=== PATIENT | female | born 1950 | race Caucasian/White ===

== ENCOUNTER 2017-09-25 15:27 | Observation (INO) | payer OTHER, BC ==
[~2017-09-25] VITALS: Ht 162.6 cm; Wt 80.0 kg
[~2017-09-25 15:27] MED LIST: ADVAIR 100/501 DISK IH; AMOX TR-K CLV1 EAC4 PO; ASPIR 8181 M1 PO; ATORVASTATIN CA10 MG PO; BENICAR40 MG PO; CALCIUM 500 MG1 EACH PO; CRESTOR10 MG PO; FLONASE16 G1 BOTH NARES; FLUCONAZOLE200 MG PO; MIRAPEX0.125 MG PO; NEXIUM40 MG PO; REQUIP2 MG PO; SERTRALINE HCL50 MG PO; ULTRAM50 MG PO; VITAMIN E100 UNIT PO; VOLTAREN50 MG PO; ZOLOFT100 MG PO
[2017-09-25 16:17] LABS: HEMATOCRIT 39.8 % (36.0-46.0); MCHC 33.9 G/DL (30.0-36.0); MCV 85.6 FL (83-99); MEAN PLAT.VOLUME 12.7 uM^3 (9.5-12.4); PLATELET COUNT 292 K/uL (156-360); RBC DIS.WIDTH-CV 15.6 % (11.8-14.6); RBC DIS.WIDTH-SD 47.7 % (39-53); RED BLOOD COUNT 4.65 M/uL (3.80-5.20); WHITE BLOOD COUNT 10.1 K/uL (4.1-10.2)
[2017-09-25 16:48] LABS: CHLORIDE 99 mEq/L (99-109); SODIUM 135 mEq/L (136-147)
[2017-09-25 16:50] LABS: GLUCOSE 124 mg/dL (70-99)
[2017-09-25 16:52] LABS: ANION GAP 11 MEQ/L (2-14); TOTAL BILIRUBIN 0.5 mg/dL (0.0-1.0)
[2017-09-25 16:54] LABS: ALKALINE PHOSPHATASE 71 IU/L (3-129); GFR ESTIMATE (CALCULATED) 19 mL/min/
[2017-09-25 16:55] LABS: UREA NITROGEN (BUN) 28 mg/dL (9-23)
[2017-09-25 16:58] LABS: LIPASE 21 U/L (1.0-51.0)
[2017-09-25 19:00] LABS: ADD MIUA? YES; BILIRUBIN NEGATIVE; BLOOD NEGATIVE; COLOR YELLOW ((YELLOW)); GLUCOSE (STRIP) NEGATIVE; KETONES NEGATIVE; LEUKOCYTES SMALL; NITRITE NEGATIVE; PROTEIN (STRIP) 30; SPECIFIC GRAVITY 1.015 (1.000-1.030); UROBILINOGEN 0.2 MG/DL (0.2-1.0)
[2017-09-25 19:09] LABS: BACTERIA RARE /HPF; EPITHELIAL CELLS 1+ /HPF; HYALINE CASTS TNTC /LPF; MUCUS TRACE /LPF; RED BLOOD CELLS 0-5 /HPF (0-5); UCUL ADDED? YES
[2017-09-25] MEDS ORDERED: LIPITOR10 MG PO (20:19)
[2017-09-25] MEDS ORDERED: FLONASE16 G1 BOTH NARES (20:22)
[2017-09-25] MEDS ORDERED: ADVAIR 250/501 DISK IH (20:24)
[2017-09-25] MEDS ORDERED: PROAIR HFA8.5 GM IH (20:28)
[2017-09-25] MEDS ORDERED: MONTELUKAST SOD10 MG PO (20:29)
[2017-09-25] MEDS ORDERED: TEARS AGAIN15 ML BOTH EYES (20:31)
[2017-09-25 23:31] VITALS: BP 118/72
[2017-09-26 04:23] VITALS: BP 116/61
[2017-09-26 07:24] LABS: ANION GAP 6 MEQ/L (2-14); CHLORIDE 104 MEQ/L (99-109); GFR ESTIMATE (CALCULATED) 40 mL/min/; POTASSIUM 4.2 MEQ/L (3.7-5.4); SAMPLE HEMOLYSIS CHECK 0; SAMPLE ICTERIC CHECK 0; SAMPLE LIPEMIA CHECK 0; SODIUM 138 MEQ/L (136-147); UREA NITROGEN (BUN) 19 mg/dL (9-23)
[2017-09-26 07:27] LABS: GLUCOSE 84 mg/dL (70-99)
[2017-09-26 07:36] VITALS: BP 113/65
[2017-09-26 11:14] VITALS: BP 125/70
== END 2017-09-26 16:35 | disposition home or self-care (01) ==
LOC: EME 15:27 → EDOF 21:06 → 5SOUTH 21:06 → ENRESERV 21:07 → 5SOUTH 22:56
PROVIDERS: Physician Assistant Medical
DX: N17.9 Acute kidney failure, unspecified (principal); K52.9 Noninfective gastroenteritis and colitis, unspecified; E86.0 Dehydration; E87.1 Hypo-osmolality and hyponatremia; Z87.19 Personal history of other diseases of the digestive system; I95.9 Hypotension, unspecified; J45.909 Unspecified asthma, uncomplicated; K21.9 Gastro-esophageal reflux disease without esophagitis; I10 Essential (primary) hypertension; E78.5 Hyperlipidemia, unspecified; F32.9 Major depressive disorder, single episode, unspecified; G89.29 Other chronic pain; M54.5 Low back pain; Z98.1 Arthrodesis status; K44.9 Diaphragmatic hernia without obstruction or gangrene; M19.90 Unspecified osteoarthritis, unspecified site; G25.81 Restless legs syndrome; Z90.710 Acquired absence of both cervix and uterus; Z82.49 Family history of ischemic heart disease and other diseases of the circulatory system; Z83.3 Family history of diabetes mellitus; Z79.82 Long term (current) use of aspirin
CPT/HCPCS: 74176; 80048; 80053; 81003; 83690; 85027; 87077; 87086; 87186; 94640; 94640 76; 99202; 99281; 99285; G0378; J1650; J2405; J7030; J7120; S0028

== ENCOUNTER 2018-01-11 15:01 | Inpatient (IN) | payer OTHER, BC ==
[~2018-01-11] VITALS: Ht 162.6 cm; Wt 82.0 kg
[~2018-01-11 15:01] MED LIST changes: +ADVAIR 250/501 DISK IH; +LIPITOR10 MG PO; -MIRAPEX0.125 MG PO; +MIRAPEX0.5 MG PO; +MONTELUKAST SOD10 MG PO; +PROAIR HFA8.5 GM IH; +TEARS AGAIN15 ML BOTH EYES
[2018-01-11 15:34] LABS: HEMATOCRIT 35.1 % (36.0-46.0); HEMOGLOBIN 11.5 G/DL (11.9-15.5); MCH 28.8 PG (29.0-34.0); MCHC 32.8 G/DL (30.0-36.0); PLATELET COUNT 337 K/uL (156-360); RBC DIS.WIDTH-CV 14.8 % (11.8-14.6); RBC DIS.WIDTH-SD 47.7 % (39-53); RED BLOOD COUNT 3.99 M/uL (3.80-5.20); WHITE BLOOD COUNT 9.9 K/uL (4.1-10.2)
[2018-01-11 15:50] LABS: CHLORIDE 102 mEq/L (99-109); POTASSIUM 4.2 mEq/L (3.7-5.4); SODIUM 136 mEq/L (136-147)
[2018-01-11 15:52] LABS: GLUCOSE 101 mg/dL (70-99); TOTAL PROTEIN 7.3 g/dL (6.4-8.3)
[2018-01-11 15:54] LABS: TOTAL BILIRUBIN 0.2 mg/dL (0.0-1.0)
[2018-01-11 15:55] LABS: ALKALINE PHOSPHATASE 73 IU/L (3-129)
[2018-01-11 15:56] LABS: CREATININE 0.9 mg/dL (0.6-1.3); GFR ESTIMATE (CALCULATED) > 59 mL/min/
[2018-01-11 15:57] LABS: AST (GOT) 23 IU/L (2-34); UREA NITROGEN (BUN) 9 mg/dL (9-23)
[2018-01-11 15:59] LABS: ALT (GPT) 31 IU/L (3-49)
[2018-01-11 19:01] LABS: APPEARANCE CLEAR ((CLEAR)); BILIRUBIN NEGATIVE; BLOOD NEGATIVE; COLOR YELLOW ((YELLOW)); GLUCOSE (STRIP) NEGATIVE; KETONES NEGATIVE; LEUKOCYTES MODERATE; NITRITE NEGATIVE; PROTEIN (STRIP) NEGATIVE; SPECIFIC GRAVITY 1.008 (1.000-1.030); UROBILINOGEN 0.2 MG/DL (0.2-1.0)
[2018-01-11 19:08] LABS: BACTERIA 1+ /HPF; EPITHELIAL CELLS RARE /HPF; MUCUS TRACE /LPF; RED BLOOD CELLS 0-5 /HPF (0-5); UCUL ADDED? YES
[2018-01-11] MEDS ORDERED: THERA TEARS30 ML BOTH EYES (22:21)
[2018-01-12 01:20] VITALS: BP 119/78
[2018-01-12 01:27] LABS: C DIFF TOXIN POSITIVE (NEGATIVE)
[2018-01-12 05:36] LABS: C-REACTIVE PROTEIN 5.4 MG/L (0-10)
[2018-01-12 06:13] LABS: BASOPHIL (%) 0.5 % (0-1); EOSINOPHIL (%) 2.9 % (0-5); EOSINOPHIL COUNT 0.2 K/uL (0-0.3); HEMATOCRIT 31.1 % (36.0-46.0); HEMOGLOBIN 10.1 G/DL (11.9-15.5); IMMATURE GRANULOCYTE (%) 0.3 % (0.0-0.7); LYMPHOCYTE (%) 26.8 % (15-42); LYMPHOCYTE COUNT 1.7 K/uL (1.0-2.8); MCH 28.5 PG (29.0-34.0); MCHC 32.5 G/DL (30.0-36.0); MCV 87.6 FL (83-99); MONOCYTE (%) 7.6 % (3-12); MONOCYTE COUNT 0.5 K/uL (0-0.8); NEUTROPHIL (%) 61.9 % (45-76); NEUTROPHIL COUNT 3.8 K/uL (1.8-6.4); NRBC (%) 0.6 /100 WBC (0-0); PLATELET COUNT 247 K/uL (156-360); RBC DIS.WIDTH-CV 14.5 % (11.8-14.6); RBC DIS.WIDTH-SD 47.2 % (39-53); RED BLOOD COUNT 3.55 M/uL (3.80-5.20); WHITE BLOOD COUNT 6.2 K/uL (4.1-10.2)
[2018-01-12 06:47] LABS: CHLORIDE 110 MEQ/L (99-109); CREATININE 0.8 MG/DL (0.6-1.3); GFR ESTIMATE (CALCULATED) > 59 mL/min/; GLUCOSE 90 mg/dL (70-99); POTASSIUM 4.3 MEQ/L (3.7-5.4); SODIUM 139 MEQ/L (136-147); UREA NITROGEN (BUN) 6 mg/dL (9-23)
[2018-01-12 06:56] LABS: APPEARANCE CLEAR ((CLEAR)); BILIRUBIN NEGATIVE; BLOOD NEGATIVE; COLOR COLORLESS ((YELLOW)); GLUCOSE (STRIP) NEGATIVE; KETONES NEGATIVE; LEUKOCYTES NEGATIVE; NITRITE NEGATIVE; PROTEIN (STRIP) NEGATIVE; SPECIFIC GRAVITY 1.005 (1.000-1.030); UROBILINOGEN 0.2 MG/DL (0.2-1.0)
[2018-01-12 12:30] VITALS: BP 150/70
[2018-01-12 15:14] VITALS: BP 124/59
[2018-01-12 19:25] VITALS: BP 152/75
[2018-01-12 23:27] VITALS: BP 127/58
[2018-01-13 05:02] VITALS: BP 117/65
[2018-01-13 06:11] LABS: BASOPHIL (%) 0.6 % (0-1); EOSINOPHIL (%) 3.3 % (0-5); EOSINOPHIL COUNT 0.2 K/uL (0-0.3); HEMATOCRIT 30.6 % (36.0-46.0); HEMOGLOBIN 9.9 G/DL (11.9-15.5); IMMATURE GRANULOCYTE (%) 0.6 % (0.0-0.7); LYMPHOCYTE (%) 32.8 % (15-42); LYMPHOCYTE COUNT 1.6 K/uL (1.0-2.8); MCH 28.4 PG (29.0-34.0); MCHC 32.4 G/DL (30.0-36.0); MCV 87.7 FL (83-99); MONOCYTE (%) 7.1 % (3-12); MONOCYTE COUNT 0.3 K/uL (0-0.8); NEUTROPHIL (%) 55.6 % (45-76); NEUTROPHIL COUNT 2.7 K/uL (1.8-6.4); PLATELET COUNT 259 K/uL (156-360); RBC DIS.WIDTH-CV 14.6 % (11.8-14.6); RBC DIS.WIDTH-SD 46.5 % (39-53); RED BLOOD COUNT 3.49 M/uL (3.80-5.20); WHITE BLOOD COUNT 4.8 K/uL (4.1-10.2)
[2018-01-13 06:33] LABS: ALBUMIN 3.3 G/DL (3.2-4.8); CHLORIDE 111 MEQ/L (99-109); CREATININE 0.8 MG/DL (0.6-1.3); GFR ESTIMATE (CALCULATED) > 59 mL/min/; GLUCOSE 103 mg/dL (70-99); PHOSPHORUS 3.3 mg/dL (2.5-4.9); SODIUM 143 MEQ/L (136-147); UREA NITROGEN (BUN) 4 mg/dL (9-23)
[2018-01-13 07:51] VITALS: BP 162/81
[2018-01-13 16:23] VITALS: BP 160/88
[2018-01-13 19:39] VITALS: BP 160/82
[2018-01-13 23:37] VITALS: BP 162/78
[2018-01-14 07:01] LABS: BASOPHIL (%) 0.5 % (0-1); EOSINOPHIL (%) 2.5 % (0-5); EOSINOPHIL COUNT 0.2 K/uL (0-0.3); HEMATOCRIT 33.6 % (36.0-46.0); HEMOGLOBIN 10.9 G/DL (11.9-15.5); IMMATURE GRANULOCYTE (%) 0.5 % (0.0-0.7); LYMPHOCYTE (%) 29.5 % (15-42); LYMPHOCYTE COUNT 1.7 K/uL (1.0-2.8); MCH 28.6 PG (29.0-34.0); MCHC 32.4 G/DL (30.0-36.0); MCV 88.2 FL (83-99); MONOCYTE COUNT 0.5 K/uL (0-0.8); NEUTROPHIL COUNT 3.5 K/uL (1.8-6.4); PLATELET COUNT 267 K/uL (156-360); RBC DIS.WIDTH-CV 14.6 % (11.8-14.6); RBC DIS.WIDTH-SD 47.6 % (39-53); RED BLOOD COUNT 3.81 M/uL (3.80-5.20); WHITE BLOOD COUNT 5.9 K/uL (4.1-10.2)
[2018-01-14 09:12] VITALS: BP 128/70
[2018-01-14] MEDS ORDERED: FLAGYL500 MG PO (11:56)
[2018-01-14] MEDS ORDERED: VANCOCIN HCL125 MG PO (11:56)
[2018-01-14 13:11] LABS: STOOL OCCULT BLD 1ST SPECIMEN NEGATIVE
== END 2018-01-14 14:00 | disposition home or self-care (01) | DRG 372 ==
LOC: EME 15:01 → EDOF 23:30 → ENRESERV 23:34 → 3EAST 01-12 01:10
PROVIDERS: Hospitalist; Internal Medicine; Internal Medicine Gastroenterology
DX: A04.72 Enterocolitis due to Clostridium difficile, not specified as recurrent (principal); K63.89 Other specified diseases of intestine; D49.511 Neoplasm of unspecified behavior of right kidney; N39.0 Urinary tract infection, site not specified; I10 Essential (primary) hypertension; D64.9 Anemia, unspecified; E78.00 Pure hypercholesterolemia, unspecified; K21.9 Gastro-esophageal reflux disease without esophagitis; J45.909 Unspecified asthma, uncomplicated; G25.81 Restless legs syndrome; G89.29 Other chronic pain; M54.9 Dorsalgia, unspecified; M19.90 Unspecified osteoarthritis, unspecified site; F32.9 Major depressive disorder, single episode, unspecified; Z87.891 Personal history of nicotine dependence; Z90.710 Acquired absence of both cervix and uterus; Z90.49 Acquired absence of other specified parts of digestive tract; Z98.1 Arthrodesis status; Z96.652 Presence of left artificial knee joint; Z79.82 Long term (current) use of aspirin; Z82.3 Family history of stroke; Z82.49 Family history of ischemic heart disease and other diseases of the circulatory system; Z82.5 Family history of asthma and other chronic lower respiratory diseases; Z83.3 Family history of diabetes mellitus
CPT/HCPCS: 74018; 74019; 74177; 80048; 80053; 80069; 81003; 82272; 83605; 85025; 85027; 86140; 87086; 87493; 87506; 94640; 94640 76; 99281; 99285; J0744; J1650; J7030; S0028; S0030

== ENCOUNTER 2018-02-15 04:50 | Inpatient (IN) | payer OTHER, BC ==
[~2018-02-15] VITALS: Ht 162.6 cm; Wt 79.0 kg
[~2018-02-15 04:50] MED LIST changes: +FLAGYL500 MG PO; +THERA TEARS30 ML BOTH EYES; +VANCOCIN HCL125 MG PO
[2018-02-15 05:48] LABS: BASOPHIL (%) 0.3 % (0-1); EOSINOPHIL COUNT 0.3 K/uL (0-0.3); HEMOGLOBIN 13.4 G/DL (11.9-15.5); IMMATURE GRANULOCYTE (%) 0.3 % (0.0-0.7); LYMPHOCYTE COUNT 1.6 K/uL (1.0-2.8); MCH 28.9 PG (29.0-34.0); MCHC 32.7 G/DL (30.0-36.0); MCV 88.4 FL (83-99); MONOCYTE COUNT 0.9 K/uL (0-0.8); NEUTROPHIL (%) 80.4 % (45-76); NEUTROPHIL COUNT 11.5 K/uL (1.8-6.4); PLATELET COUNT 381 K/uL (156-360); RBC DIS.WIDTH-CV 14.9 % (11.8-14.6); RBC DIS.WIDTH-SD 48.7 % (39-53); RED BLOOD COUNT 4.64 M/uL (3.80-5.20); WHITE BLOOD COUNT 14.3 K/uL (4.1-10.2)
[2018-02-15 05:59] LABS: ALBUMIN 4.3 g/dL (3.2-4.8); CHLORIDE 104 mEq/L (99-109); POTASSIUM 4.8 mEq/L (3.7-5.4); SODIUM 138 mEq/L (136-147)
[2018-02-15 06:00] LABS: MAGNESIUM 2.1 mg/dL (1.3-2.7)
[2018-02-15 06:01] LABS: GLUCOSE 127 mg/dL (70-99); TOTAL PROTEIN 7.5 g/dL (6.4-8.3)
[2018-02-15 06:03] LABS: TOTAL BILIRUBIN 0.5 mg/dL (0.0-1.0)
[2018-02-15 06:05] LABS: ALKALINE PHOSPHATASE 67 IU/L (3-129); CREATININE 1.2 mg/dL (0.6-1.3); GFR ESTIMATE (CALCULATED) 47 mL/min/
[2018-02-15 06:06] LABS: UREA NITROGEN (BUN) 15 mg/dL (9-23)
[2018-02-15 06:07] LABS: AST (GOT) 35 IU/L (2-34)
[2018-02-15 06:08] LABS: ALT (GPT) 39 IU/L (3-49)
[2018-02-15 06:09] LABS: TROP-I INTERPRETATION NEGATIVE; TROPONIN-I < 0.01 ng/mL (0.0-0.30)
[2018-02-15 09:54] LABS: C DIFF TOXIN NEGATIVE (NEGATIVE)
[2018-02-15 13:35] LABS: APPEARANCE CLEAR ((CLEAR)); BILIRUBIN NEGATIVE; BLOOD NEGATIVE; COLOR YELLOW ((YELLOW)); GLUCOSE (STRIP) NEGATIVE; KETONES NEGATIVE; LEUKOCYTES NEGATIVE; NITRITE NEGATIVE; PROTEIN (STRIP) NEGATIVE; SPECIFIC GRAVITY 1.011 (1.000-1.030); UCUL ADDED? NO; UROBILINOGEN 0.2 MG/DL (0.2-1.0)
[2018-02-15 17:17] VITALS: BP 137/75
[2018-02-15 17:20] VITALS: BP 137/75
[2018-02-15 19:01] VITALS: BP 119/70
[2018-02-15 23:44] VITALS: BP 133/72
[2018-02-16 04:17] VITALS: BP 119/68
[2018-02-16 08:18] VITALS: BP 163/74
[2018-02-16 10:33] LABS: CHLORIDE 111 MEQ/L (99-109); CREATININE 0.8 MG/DL (0.6-1.3); GFR ESTIMATE (CALCULATED) > 59 mL/min/; POTASSIUM 4.2 MEQ/L (3.7-5.4); SODIUM 138 MEQ/L (136-147); UREA NITROGEN (BUN) 8 mg/dL (9-23)
[2018-02-16 10:37] LABS: GLUCOSE 87 mg/dL (70-99)
== END 2018-02-16 12:12 | disposition home or self-care (01) | DRG 392 ==
LOC: EME 04:50 → 4EAST 08:20 → EDOF 08:20 → ENRESERV 08:22 → EDOF 08:47 → ENRESERV 13:16 → 4EAST 17:12 → ENPENDDIS 02-16 → 4EAST 02-16 10:08
PROVIDERS: Emergency Medicine; Family Medicine
DX: K52.9 Noninfective gastroenteritis and colitis, unspecified (principal); E86.0 Dehydration; E87.2 Acidosis; I95.9 Hypotension, unspecified; N28.89 Other specified disorders of kidney and ureter; I10 Essential (primary) hypertension; G25.81 Restless legs syndrome; E78.5 Hyperlipidemia, unspecified; J45.909 Unspecified asthma, uncomplicated; K21.9 Gastro-esophageal reflux disease without esophagitis; F32.9 Major depressive disorder, single episode, unspecified; Z87.891 Personal history of nicotine dependence; Z87.19 Personal history of other diseases of the digestive system; Z98.1 Arthrodesis status; Z90.710 Acquired absence of both cervix and uterus; Z82.3 Family history of stroke; Z82.49 Family history of ischemic heart disease and other diseases of the circulatory system; Z82.5 Family history of asthma and other chronic lower respiratory diseases; Z83.3 Family history of diabetes mellitus
CPT/HCPCS: 80048; 80053; 81003; 83605; 83735; 84484; 85025; 85610; 85730; 87040; 87493; 93005; 94640; 94640 76; 99281; 99285; J1650; J2405; J7030; S0028

== ENCOUNTER → 2018-02-28 | Outpatient (CLI) | payer OTHER, BC ==
[~2018-02-28] MED LIST changes: +ZANTAC150 MG PO
== END | disposition home or self-care (01) ==
LOC: OPR 08:41 → EDSTATUS 09:00
PROC: 0TB03ZX Excision of Right Kidney, Percutaneous Approach, Diagnostic (ICD-10-PCS; principal; 2018-02-28)
DX: N28.89 Other specified disorders of kidney and ureter (principal)
CPT/HCPCS: 77012; 88305; 88341 TC; 88342 TC